=== PATIENT | male | born 1965 | race Caucasian/White ===

== ENCOUNTER → 2022-02-16 | Outpatient (CLI) | payer BC ==
--- NOTE | 2022-02-16 16:10 | CT ---
EXAMINATION TYPE: CT hand RT wo con, CT wrist RT wo con DATE OF EXAM: 02/16/2022 COMPARISON: None. HISTORY: Dog bite to scaphoid area of wrist. Unspecified fracture of scaphoid. Pain after injury. CT DLP: 316.70 mGycm Automated exposure control for dose reduction was used. FINDINGS: No acute fracture or dislocation in the right wrist or right hand. The carpal joint spaces are mainta ined. Nonspecific sclerotic focus at base of the trapezium favors benign bone island. Mild narrowing at the base of first metacarpal Joint spaces in the left hand otherwise appear within normal limits. Mild subcutaneous edema along the palmar surface at the base of the first and second metacarpal bones . No well-formed fluid collection or abscess. IMPRESSION: No acute fracture or dislocation in the right hand or wrist
== END | disposition home or self-care (01) ==
LOC: RADCTMAIN 15:33
PROVIDERS: ATTEND Family Medicine
DX: S62.001A Unspecified fracture of navicular [scaphoid] bone of right wrist, initial encounter for closed fracture (principal)

== ENCOUNTER 2023-04-08 12:13 | Emergency (ER) | payer BC ==
[2023-04-08 12:24] VITALS: BP 165/104; PULSE 105; RESP 20; TEMP 98
--- NOTE | 2023-04-08 12:45 | ED ---
Recheck HPI - General Chief Complaint: Recheck/Abnormal Lab/Rx Stated Complaint: food stuck in throat Time Seen by Provider: 04/08/23 12:28 Source: patient, family, RN notes reviewed Mode of arrival: ambulatory Limitations: no limitations - History of Present Illness Initial Comments: Patient is a 57-year-old male presented ER with chief complaint of foreign body in his esophagus. Patient states he was eating chicken and felt like it stuck in his throat. Patient states he tried drinking Coca-Cola and water and it would come straight back up. Patient denies any shortness of breath or chest pain. Patient denies any history of strictures. Patient denies any other complaints at this time. - Related Data Allergies Allergy/AdvReac Type Severity Reaction Status Date / Time No Known Allergies Allergy Verified 04/08/23 12:18 Review of Systems ROS Statement: Those systems with pertinent positive or pertinent negative responses have been documented in the HPI. ROS Other: All systems not noted in ROS Statement are negative. Past Medical History Past Medical History: No Reported History History of Any Multi-Drug Resistant Organisms: None Reported Additional Past Surgical History / Comment(s): Lungs. Past Psychological History: No Psychological Hx Reported Smoking Status: Never smoker Past Alcohol Use History: Occasional Past Drug Use History: None Reported General Exam Limitations: no limitations General appearance: alert, in no apparent distress Head exam: Present: atraumatic, normocephalic, normal inspection ENT exam: Present: normal exam, normal oropharynx, mucous membranes moist Respiratory exam: Present: normal lung sounds bilaterally. Absent: respiratory distress, wheezes, rales, rhonchi, stridor Cardiovascular Exam: Present: regular rate, normal rhythm, normal heart sounds. Absent: systolic murmur, diastolic murmur, rubs, gallop, clicks Course Vital Signs 04/08/23 12:14 Temperature 98 F Pulse Rate 105 H Respiratory 20 Rate Blood Pressure 165/104 O2 Sat by Pulse 99 Oximetry Medical Decision Making - Medical Decision Making Was pt. sent in by a medical professional or institution (, PA, MECHANICAL INTEGRITY ENGINEER, urgent care, hospital, or longterm...) When possible be specific @ -No Did you speak to anyone other than the patient for history (EMS, parent, family, police, friend...)? What history was obtained from this source @ -Family Did you review nursing and triage notes (agree or disagree)? Why? @ -I reviewed and agree with nursing and triage notes Were old charts reviewed (outside hosp., previous admission, EMS record, old EKG, old radiological studies, urgent care reports/EKG's, longterm records)? Report findings @ -No old charts were reviewed Differential Diagnosis (chest pain, altered mental status, abdominal pain women, abdominal pain men, vaginal bleeding, weakness, fever, dyspnea, syncope, headache, dizziness, GI bleed, back pain, seizure, CVA, palpatations, mental health, musculoskeletal)? @ -Esophageal stricture, foreign body is stuck in esophagus, foreign body in trachea EKG interpreted by me (3pts min.). @ -None X-rays interpreted by me (1pt min.). @ -None done CT interpreted by me (1pt min.). @ -None done U/S interpreted by me (1pt. min.). @ -None done What testing was considered but not performed or refused? (CT, X-rays, U/S, labs)? Why? @ -Chest x-ray was considered but not performed since foreign body is not radiopaque. What meds were considered but not given or refused? Why? @ -None Did you discuss the management of the patient with other professionals (professionals i.e. , PA, MECHANICAL INTEGRITY ENGINEER, lab, RT, psych nurse, social worker school, couturiere, teacher, business services officer, disease case manager)? Give summary @ -No Was smoking cessation discussed for >3mins.? @ -No Was critical care preformed (if so, how long)? @ -No Were there social determinants of health that impacted care today? How? (Homelessness, low income, unemployed, alcoholism, drug addiction, transportation, low edu. Level, literacy, decrease access to med. care, shelter, rehab)? @ -No Was there de-escalation of care discussed even if they declined (Discuss DNR or withdrawal of care, Hospice)? DNR status @ -No What co-morbidities impacted this encounter? (DM, HTN, Smoking, COPD, CAD, Cancer, CVA, ARF, Chemo, Hep., AIDS, mental health diagnosis, sleep apnea, morbid obesity)? @ -None Was patient admitted / discharged? Hospital course, mention meds given and route, prescriptions, significant lab abnormalities, going to OR and other pertinent info. @ -Discharge. Patient is a 57-year-old male presenting to the ER with chief complaint of foreign body in esophagus. Upon examination, patient vitals were stable. Physical exam was significant for nonlabored breathing, no stridor or respiratory distress noted. Patient was not showing any signs of distress. I observed as patient drank ice water without difficulty. Patient states that he no longer feels the foreign body in his esophagus and that the water is staying down. Chest x-ray was not performed sign foreign body was not radiopaque. I discussed with patient that if this continues to happen he should follow up up with GI for a possible EGD. I instruct patient to try carbonated beverages if this happens again. Return parameters were discussed. Patient will be discharged in stable condition with follow-up to PCP. Patient expressed understanding and agreement with care plan. Undiagnosed new problem with uncertain prognosis? @ -No Drug Therapy requiring intensive monitoring for toxicity (Heparin, Nitro, Insulin, Cardizem)? @ -No Were any procedures done? @ -No Diagnosis/symptom? @ -Rule out foreign body in esophagus Acute, or Chronic, or Acute on Chronic? @ -Acute Uncomplicated (without systemic symptoms) or Complicated (systemic symptoms)? @ -Uncomplicated Side effects of treatment? @ -No Exacerbation, Progression, or Severe Exacerbation? @ -No Poses a threat to life or bodily function? How? (Chest pain, [place], [place], pneumonia, PE, COPD, DKA, ARF, appy, cholecystitis, CVA, Diverticulitis, Homicidal, Suicidal, threat to staff... and all critical care pts) @ -No Disposition Clinical Impression: Foreign body in esophagus Disposition: HOME SELF-CARE Condition: Stable Additional Instructions: Please return to the Emergency Department if symptoms worsen or any other concerns. Is patient prescribed a controlled substance at d/c from ED?: No Referrals: Kenji Andrews MD [Primary Care Provider] - 1-2 days Time of Disposition: 12:45
== END 2023-04-08 12:53 | disposition home or self-care (01) ==
LOC: EC 12:13
DX: T18.128A Food in esophagus causing other injury, initial encounter (principal)
CPT/HCPCS: 99283

== ENCOUNTER → 2023-05-18 | Outpatient (CLI) | payer BC ==
--- NOTE | 2023-05-18 15:27 | CT ---
EXAMINATION TYPE: CT chest wo con DATE OF EXAM: 05/18/2023 COMPARISON: 09/17/2011 HISTORY: F/U PNEUMONIA CT DLP: 450 mGycm, Automated exposure control for dose reduction was used. CONTRAST: Performed injected with 0 mL of Isovue 300. TECHNIQUE: Axial images were obtained at 5 mm thick sections. Reconstructed images are reviewed on [employer] computer in the coronal plane. FINDINGS: Portion of the thyroid visualized is normal. There is a 1.6 cm nodule within the posterior lateral right lung base. This measured 1.4 cm in 2011. No enlarged mediastinal or hilar adenopathy is evident. The ascending aorta diameter at the level o f the main pulmonary artery is 3.8 cm. The main pulmonary artery diameter at the bifurcation is 2.3 cm. Some coronary artery calcification is noted. Limited CT sections are obtained through the upper abdomen. Abdomen is essentially unremarkable. IMPRESSION: 1. Minimal enlargement over a long interval of the peripheral right lower lobe nodule.
== END | disposition home or self-care (01) ==
LOC: RADCTMAIN 11:59
PROVIDERS: ATTEND Family Medicine
DX: R91.1 Solitary pulmonary nodule (principal); J18.9 Pneumonia, unspecified organism
CPT/HCPCS: 71250

== ENCOUNTER → 2023-10-25 | Day surgery (SDC) | payer BC ==
[2023-10-24 08:53] VITALS: BMI 26.4
[~2023-10-25] MED LIST: LIDOCAINE 1% INJ 10MG/ML (20 ML MDV) ONE; PROPOFOL 10 MG/ML 20 ML VIAL IV ONE
[2023-10-25 09:40] VITALS: TEMP 97.4
[2023-10-25] MEDS: IV FLUID CONTINUATION 1,000 ML IV ONE ×2 (09:45→10:08)
[2023-10-25] MEDS: LACTATED RINGERS 1,000 ML BAG IV STA (09:58)
--- NOTE | 2023-10-25 10:17 | P.PCN ---
Date of Procedure: 10/25/23 Procedure(s) Performed: BRIEF HISTORY: Patient is a 58-year-old, pleasant, white male scheduled for an upper endoscopy as a part evaluation of intermittent dysphagia to solids for the last 6 months duration.. PROCEDURE PERFORMED: Esophagogastroduodenoscopy with biopsy and dilation. PREOPERATIVE DIAGNOSIS: Intermittent dysphagia to solids of 6 months duration. IV sedation per anesthesia. PROCEDURE: After informed consent was obtained, the patient was brought into the endoscopy unit. IV sedation was administered by Anesthesia under continuous monitoring. Initially the Olympus GIF-140 video endoscope was inserted into the mouth. Esophagus intubated without any difficulty. It was gradually advanced into the stomach and duodenum and carefully examined. The bulb and the second part of the duodenum appeared normal. The scope at this time was withdrawn to the stomach, adequately insufflated with air, and upon careful examination, mucosa of the antrum, body, cardia and the fundus appeared normal. The scope was then withdrawn into the esophagus. Hiatal hernia noted. The GE junction was located at 39 cm from the incisors. There was a distal esophageal stricture identified and identified this was dilated using 15 to 18 mm TTS balloon for 60 seconds. There was some mucosal tear with oozing identified. There were multiple superficial mucosal rings noted in the distal esophagus with thickened folds suspicious for eosinophilic esophagitis and hence multiple biopsies were done from the mid and distal esophagus. the esophagus appeared normal. There were no erosions or ulcerations seen and the patient tolerated the procedure well. IMPRESSION: 1. Distal esophageal stricture status post balloon dilation using 15 to 18 mm TTS balloon 2. Small hiatal hernia. 3. Thickened distal esophageal folds with mucosal rings suspicious for eosinophilic esophagitis s/p multiple biopsies RECOMMENDATIONS: The findings of this examination were discussed with the patient as well as his family. He was advised to be on a clear liquid diet for 2 hours. Resume omeprazole 20 mg daily and follow antireflux measures. Follow- up in the office in 3 to 4 weeks..
[2023-10-25 10:21] VITALS: RESP 16
[2023-10-25 10:41] VITALS: BP 154/90; PULSE 92
== END ==
LOC: ORWHC2ENDO 09:05
PROVIDERS: ATTEND Internal Medicine Gastroenterology
DX: K20.90 Esophagitis, unspecified without bleeding (principal); K22.2 Esophageal obstruction; K44.9 Diaphragmatic hernia without obstruction or gangrene; I10 Essential (primary) hypertension; Z87.891 Personal history of nicotine dependence; Z79.899 Other long term (current) drug therapy
CPT/HCPCS: 88305; 43239; 43249; J2001; J2704; C1726; 43244

== ENCOUNTER 2024-01-31 10:10 | Day surgery (SDC) | payer BC ==
[~2024-01-31 10:10] MED LIST changes: +LIDOCAINE 1% (10MG/ML) FOR IV START INTRADERMA PRN; -LIDOCAINE 1% INJ 10MG/ML (20 ML MDV) ONE; -PROPOFOL 10 MG/ML 20 ML VIAL IV ONE
[2024-01-31] MEDS: IV FLUID CONTINUATION 1,000 ML IV ONE (11:09)
[2024-01-31 11:11] VITALS: RESP 18; TEMP 97.4
[2024-01-31] MEDS: LACTATED RINGERS 1,000 ML IV SCH (11:16)
[2024-01-31] MEDS ORDERED: PROPOFOL 10 MG/ML 20 ML VIAL IV ONE (12:15)
--- NOTE | 2024-01-31 12:34 | P.PCN ---
Date of Procedure: 01/31/24 Procedure(s) Performed: BRIEF HISTORY: Patient is a 58-year-old pleasant white male scheduled for an elective colonoscopy as a part of screening for colon cancer. PROCEDURE PERFORMED: Colonoscopy with biopsy and snare polypectomy. PREOPERATIVE DIAGNOSIS: Screening for colon cancer. IV sedation per Anesthesia. PROCEDURE: After informed consent was obtained, the patient, was brought into the endoscopy unit. IV sedation was administered by Anesthesia under continuous monitoring. Digital rectal examination was normal. Initially the Olympus CF-160 flexible video colonoscope was then inserted in the rectum, gradually advanced into the cecum without any difficulty. Careful examination was performed as the scope was gradually being withdrawn. Ileocecal valve and the appendiceal orifice were visualized and appeared normal. Prep was excellent. Mucosa of the cecum had a 3 mm sessile polyp removed by cold biopsy. Rest of the, ascending colon, transverse colon, descending colon, appeared normal. In the sigmoid colon there was a 1 cm polyp removed by snare polypectomy. Scattered sigmoid diverticulosis seen. Rest of the sigmoid colon, and rectum appeared normal. Retroflexion was performed in the rectum and no lesions were seen. The patient tolerated the procedure well. IMPRESSION: 3 mm cecal polyp status post cold biopsy 1 cm sigmoid colon polyp status post snare polypectomy Scattered sigmoid diverticulosis Recommendations: Findings of this examination were discussed with the patient as well as his family he was advised to follow-up with the biopsy results. If the biopsy reveals adenoma he can have repeat colonoscopy in 3 years.
[2024-01-31 13:14] VITALS: BP 136/86; PULSE 72
== END 2024-01-31 13:11 | disposition home or self-care (01) ==
LOC: ORWHC2ENDO 10:10
PROVIDERS: ATTEND Internal Medicine Gastroenterology
DX: Z12.11 Encounter for screening for malignant neoplasm of colon
CPT/HCPCS: 45380; 45385; 88305